=== PATIENT | male | born 1985 | race Caucasian/White ===

== ENCOUNTER 2023-02-11 09:40 | Emergency (ER) | payer OTHER, SELFPAY ==
[2023-02-11 09:46] VITALS: BP 110/81; PULSE 80; RESP 18; TEMP 36.3; O2SAT 98; BMI 30.7
--- NOTE | 2023-02-11 11:07 | ED.EXTPRO ---
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 No associated trauma. Denies numbness. No fevers or chills. No previous issues with this extremity in the past. Has not taken anything for pain. Related Data Previous Rx's Medication Instructions Recorded ketorolac 10 mg tablet 10 mg PO TID PRN pain 5 days #15 02/11/23 tabs prednisone 50 mg tablet 50 mg PO DAILY 5 days #5 tabs 02/11/23 Allergies Allergy/AdvReac Type Severity Reaction Status Date / Time No Known Allergies Allergy Verified 02/11/23 09:44 Review of Systems Review of Systems: Constitutional : No Weight loss, No Fever, No Chills, No Fatigue, No Malaise ENT/Mouth : No sore throat, No Rhinorrhea Eyes: No Eye Pain, No Swelling, No Redness Cardiovascular : No Chest Pain, No SOB, No Dyspnea on Exertion, No Orthopnea, No Edema, No Palpitations Respiratory : No Cough, No Sputum, No Wheezing Gastrointestinal : No Nausea, No Vomiting, No Diarrhea, No Constipation, No abdominal Pain, No Hematochezia, No Melena Genitourinary : No Dysuria, No Urinary Frequency, No Hematuria, Musculoskeletal : + joint pain, No Myalgias, No Joint Swelling Skin : No Skin Lesions, No rash Neuro : No Weakness, No Numbness, No Dizziness, No Headache Psych : No Anxiety/Panic, No Depression All other systems reviewed and are negative Yes all other systems are reviewed and are negative [facility] Past Medical History Attestation statement: The following information was validated with the patient. Source: old records reviewed and nursing notes reviewed Social History Social History Advance Directives: No Advance Directives Information Provided: No Physical Exam Vital Signs: Vital Signs: Last Vital Signs Temp 97.3 F 02/11/23 09:46 Pulse 80 02/11/23 09:46 Resp 18 02/11/23 09:46 BP 110/81 02/11/23 09:46 Pulse Ox 98 02/11/23 09:46 O2 Del Method Room Air 02/11/23 09:46 BMI result Body Mass Index 30.7 vss Appearance: Alert.? Oriented X3.? No acute distress.? Head: Normocephalic, atraumatic, no step-offs or deformities Eyes: Pupils equal, round and reactive to light.? Neck: Normal inspection.? Neck supple.? CVS: Normal heart rate and rhythm.? Pulses normal.? Respiratory: No respiratory distress.? Breath sounds normal.? Abdomen: Soft and nontender.? Skin: Skin warm and dry.? Normal skin color.? Normal skin turgor.? Extremities: No lower extremity edema.? No calf ttp. 5/5 strength to bilateral upper and lower extremities full range of motion to bilateral wrist 2+ radial pulses equal bilateral. No wrist drop. Capillary refill less than 2 seconds to bilateral upper extremities. Positive Tinel sign Neuro: Oriented X 3.? No motor deficit.? No sensory deficit. CN 2-12 intact Medical Decision Making Medical Decision Making [facility] Narrative: 1108 37-year-old male presents with left wrist pain for the past few months intermittent in nature and worsening. Physical exam significant Positive Tinel sign. Full range of motion to bilateral wrists Likely carpal tunnel versus cubital tunnel versus inflammatory arthritis. Unlikely fracture, dislocation, arterial, venous occlusion, threat to limber neurovascular compromise Plan will discharge patient home with Toradol, prednisone and orthopedic follow-up. No indication for imaging as this was atraumatic. Educated patient on diagnosis and treatment plan, answered all question, patient verbalizes understanding. At this time patient will be discharged home, advised to return with new or worsening symptoms. Educated on worrisome signs and symptoms and when to return. At this time I feel comfortable discharge home. Differential Diagnosis Differential Diagnoses: The differential diagnosis associated with the presentation includes Likely carpal tunnel versus cubital tunnel versus inflammatory arthritis. Unlikely fracture, dislocation, arterial, venous occlusion, threat to limber neurovascular compromise Admission/Observation Consideration of admission/observation: Escalation of care including admission/observation considered No indication Tests considered The following testing was considered but not selected: Considered imaging however would not change my treatment plan, no trauma no indication. No point tenderness. Prescription Management I considered prescription management with: Pain Medication and Other (Toradol, prednisone.) Social Determinants Patient?s care significantly limited by Social Determinants of Health including: Low income Discharge Plan Discharge Clinical Impression: Acute carpal tunnel syndrome Patient Disposition: Home, Self-Care Instructions: R.I.C.E. Treatment (ED) Additional Instructions: Take your medications as prescribed. If you were prescribed antibiotics today, it is important that you take your medication to their entirety, do not skip any doses, do not finish them early. Follow-up with your primary care provider this week. Follow-up with the orthopedic team. Return to the emergency department with new or worsening symptoms. Such as fevers, chills, chest pain, shortness of breath, nausea, vomiting, dizziness, headache, vision changes, lethargy, numbness, tingling, changes in skin color or swelling In case of emergency call 911 Toradol has been sent to your pharmacy, you tolerated this well in the department. Please take this as prescribed do not take this with ibuprofen, or other NSAIDs, do not mix this with alcohol. Side effects of this medication including increased risk for bleeding and possible kidney injury. Prescriptions: New ketorolac 10 mg tablet 10 mg PO TID PRN (Reason: pain) 5 Days Qty: 15 0RF prednisone 50 mg tablet 50 mg PO DAILY 5 Days Qty: 5 0RF [place] [facility] [place] [facility] [Provider Group] - 2 days Physician,None [Primary Care Provider] - 2 days Stand Alone Forms: Work/School Release
[2023-02-11] MEDS: Ketorolac Tromethamine 30 MG/ML VIAL IM (11:14)
== END 2023-02-11 11:27 | disposition home or self-care (01) ==
PROVIDERS: Emergency Provider Emergency Medicine Emergency Medical Services
DX: G56.02 Carpal tunnel syndrome, left upper limb (principal)
CPT/HCPCS: 29125; 96372; 99284; J1885

== ENCOUNTER 2023-02-20 12:28 | Emergency (ER) | payer OTHER, SELFPAY ==
[2023-02-20 12:53] VITALS: BP 119/82; PULSE 74; RESP 18; TEMP 36.5; O2SAT 96; BMI 23.4
--- NOTE | 2023-02-20 12:55 | ED_ITS ---
HPI - Extremity Injury (Upper) General Chief Complaint: Extremity Injury, Upper Stated Complaint: wrist pain Time Seen by Provider: 02/20/23 12:58 Source: patient Mode of arrival: ambulatory Limitations: no limitations History of Present Illness HPI narrative: patient is a 37-year-old male presents emergency department for evaluation of persistent left wrist pain. States he was seen here 1 week ago and was advised that he has carpal tunnel syndrome. He received prescription for ketorolac and prednisone, has been wearing a brace, but continues to have pain. He has a an appointment with Orthopedics Scheduled for later this month. Related Data Previous Rx's Medication Instructions Recorded ketorolac 10 mg tablet 10 mg PO TID PRN pain 5 days #15 02/11/23 tabs prednisone 50 mg tablet 50 mg PO DAILY 5 days #5 tabs 02/11/23 Allergies Allergy/AdvReac Type Severity Reaction Status Date / Time No Known Allergies Allergy Verified 02/20/23 12:53 Review of Systems Review of Systems: Yes all other systems are reviewed and are negative PMF[facility] Past Medical History Attestation statement: The following information was validated with the patient. Source: old records reviewed Social History Social History Advance Directives: No Advance Directives Information Provided: Yes Physical Exam Vital Signs: Vital Signs: Last Vital Signs Temp 97.7 F 02/20/23 12:53 Pulse 74 02/20/23 12:53 Resp 18 02/20/23 12:53 BP 119/82 02/20/23 12:53 Pulse Ox 96 02/20/23 12:53 O2 Del Method Room Air 02/20/23 12:53 BMI result Body Mass Index 23.4 Appearance: Alert.?Oriented to person, place and time. No acute distress.?Normal affect. Eyes: Pupils equal, round and reactive to light.? ENT: Pharynx normal.?? Neck: Normal inspection.? Neck supple.?? CVS: Heart sounds normal. Normal heart rate and rhythm.? Pulses normal.?? Respiratory: No respiratory distress.? Lung sounds clear to auscultation bilaterally?? Abdomen: Soft and non-tender. Normoactive bowel sounds. Skin: Skin warm and dry.? Normal skin color.? ? Extremities: No lower extremity edema.? No calf ttp? 2+ radial pulse bilaterally. No wrist drop. + Tinel Neuro: Moves all extremities spontaneously. Sensation intact bilaterally. No focal neuro deficits. Ambulates with normal steady gait. Medical Decision Making Medical Decision Making MDM Narrative: 37-year-old male presents with left wrist pain for the past few months intermittent in nature and worsening. physical examination is consistent with carpal tunnel syndrome. No erythema, warmth, fevers, to suggest septic arthri tis. No neurovascular compromise. Discussed plan of care for discharge home, outpatient follow-up with Orthopedics, advised acetaminophen/ ibuprofen, avoidance of exacerbating repetitive movements. Stable for discharge. Discussed worrisome signs and symptoms that would warrant re-evaluation. Differential Diagnosis Differential Diagnoses: The differential diagnosis associated with the presentation includes (Likely carpal tunnel versus cubital tunnel versus inflammatory arthritis. Unlikely fracture, dislocation, arterial, venous occlusion, ) Tests considered The following testing was considered but not selected: As noted above Prescription Management I considered prescription management with: Pain Medication Discharge Plan Discharge Clinical Impression: Acute carpal tunnel syndrome Patient Disposition: Home, Self-Care Additional Instructions: You can take ibuprofen 200 mg, 3 tablets (600mg) every 6-8 hours as needed for pain, in addition to Tylenol 500 mg, 2 tablets (1,000mg) every 4-6 hours as needed for pain, but not to exceed 3 doses daily (3,000mg).? refrain from activities that worsen your pain. Where the splint provided to assist with pain management, especially wear them at night. Follow-up with orthopedics as scheduled. Prescriptions: No Action ketorolac 10 mg tablet 10 mg PO TID PRN (Reason: pain) 5 Days Qty: 15 0RF prednisone 50 mg tablet 50 mg PO DAILY 5 Days Qty: 5 0RF Referrals: Physician,Unknown J [Physician] - Discharge Date/Time: 02/20/23 13:29
== END 2023-02-20 13:29 | disposition home or self-care (01) ==
PROVIDERS: Emergency Provider Emergency Medicine
DX: G56.02 Carpal tunnel syndrome, left upper limb (principal)
CPT/HCPCS: 99281; 99282

== ENCOUNTER 2023-03-09 13:24 | Outpatient (AMB) | payer OTHER, SELFPAY ==
--- NOTE | 2023-03-09 13:31 | A.OFFVIS_ITS ---
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 Patient reports pain, numbness and tingling at his ulnar aspect of wrist as well as his palm. States noticing his pain around 02/11/22 that has been recently getting worse. He believes this is work related due to repetitive movement and lifting. His pain comes with lifting or twisting his of wrist. [place] [facility] [place], placed in a wrist brace and referral to orthopedics. He found little relief with ketoralac and prednisone that was prescribed. No other tx. 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 He states he has developed worsening pain due to repetitive motions and lifting at work. He states he has worsening pain, numbness and tingling at the ulnar aspect of his left wrist as well as his palm. His pain comes with lifting, twisting, supination, pronation and flexion of his wrist. He was recently seen at ED where x-rays were performed, placed in a wrist brace which he wears all the time, and he was referred to our office. He finds mild relief with ketorolac and prednisone. He has not had any treatment in the past. 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 Review of Systems Const All systems reviewed & are unremarkable except as noted in HPI and below Physical Exam Vital Signs: BMI result Body Mass Index 23.4 Const General: cooperative, healthy appearing, comfortable, no acute distress, well developed and alert Orientation/consciousness: patient oriented x3 HEENT Head: Yes normal to inspection, Yes normocephalic and Yes atraumatic Eyes General: appearance normal, both eyes and all related structures Resp Effort & Inspection: normal respiratory effort and able to speak in complete sentences Cardio Rate: regular rate Peripheral pulses: Peripheral pulses 2+ throughout GI Palpation (GI): Soft to palpation Skin Lesions: no lesions Rashes: no rashes Neuro General: patient oriented x3 Extrem Other: Left wrist: Normal to inspection. Tenderness over the carpal canal. Numbness and tingling over the median nerve distribution of the right hand. Able to make a full fist and fully extend all fingers. Positive Tinel's over cubital tunnel. Assessment & Plan Assessment & Plan (1) Cubital tunnel syndrome on left: Code(s): G56.22 - Lesion of ulnar nerve, left upper limb Plan He is going to continue with wrist splint while working. He will return to work light duty and he was sent for an EMG/nerve conduction study of his LUE to further evaluate etiology of his numbness. He will see me back once the scan is complete. Orders: Orders NE nerve conduction velocity Today R20.0 - Anesthesia of skin, R20.2 - Paresthesia of skin NE electromyogram (EMG) Today R20.0 - Anesthesia of skin, R20.2 - Paresthesia of skin Patient Instructions: Scribed for Ced Jamison PA-C, by Raad Ford medical technologist prn, on 03/09/2023 at 1:45 PM EST. I, Ced Jamison PA-C, have personally reviewed and agree with the information entered by the scribe. Coding Level of Care Code New Pt Level 3 (46059) Diagnoses Cubital tunnel syndrome on left G56.22
[2023-03-09 13:32] VITALS: BMI 23.4
== END 2023-03-09 14:28 | disposition home or self-care (01) ==
PROVIDERS: Visit Provider Physician Assistant
DX: G56.22 Lesion of ulnar nerve, left upper limb (principal)
CPT/HCPCS: 99203

== ENCOUNTER → 2023-03-09 13:24 | Outpatient (BNVA) | payer OTHER, SELFPAY | PROVIDERS: Visit Provider Physician Assistant | DX: G56.22 Lesion of ulnar nerve, left upper limb (principal) | CPT/HCPCS: 99202 ==

== ENCOUNTER 2023-04-17 09:39 | Outpatient (REF) | payer OTHER, SELFPAY | END 2023-04-17 09:40 | disposition home or self-care (01) | LOC: HO.NEURO 09:39 | PROVIDERS: Visit Provider Physician Assistant | DX: R20.0 Anesthesia of skin (principal); R20.2 Paresthesia of skin | CPT/HCPCS: 95886; 95909 ==

== ENCOUNTER → 2023-04-17 09:46 | Outpatient (BNV) | payer OTHER, SELFPAY | PROVIDERS: Visit Provider Physical Medicine & Rehabilitation | DX: M25.532 Pain in left wrist (principal); M25.522 Pain in left elbow | CPT/HCPCS: 95886; 95909 ==

== ENCOUNTER 2023-05-11 10:48 | Outpatient (AMB) | payer OTHER, SELFPAY ==
[2023-05-11 10:52] VITALS: BMI 23.4
--- NOTE | 2023-05-11 10:52 | A.OFFVIS_ITS ---
Intake Vital Signs 05/11/23 10:52 Height 5 ft 10 in Weight 163 lb BMI 23.4 Intake Visit Reasons: OV- EMG review Left upper Extremity Intake Note: Len 37 yr ld male presents today for his EMG review done with Dr. Vega. States he continues to have numbness and pain. He continues to wear his velcro wrist brace. Allergies No Known Allergies Allergy (Verified 05/11/23 10:53) HPI OV- EMG review Left upper Extremity HPI Details 37-year-old male who returns to the [facility] for an EMG review of LUE. He continues to have intermittent numbness and pain in his wrist which is aggravated with picking objects. He has no other concerns today. 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 Review of Systems Const All systems reviewed & are unremarkable except as noted in HPI and below Physical Exam Vital Signs: BMI result Body Mass Index 23.4 Const General: cooperative, healthy appearing, comfortable, no acute distress, well developed and alert Orientation/consciousness: patient oriented x3 HEENT Head: Yes normal to inspection, Yes normocephalic and Yes atraumatic Eyes General: appearance normal, both eyes and all related structures Resp Effort & Inspection: normal respiratory effort and able to speak in complete sentences Cardio Rate: regular rate Peripheral pulses: Peripheral pulses 2+ throughout GI Palpation (GI): Soft to palpation Skin Lesions: no lesions Rashes: no rashes Neuro General: patient oriented x3 Extrem Other: Left wrist: Normal to inspection. He experiences decreased sensation along the ulnar aspect of the hand. Mild discomfort with tinels over the cubital canal. Results Reviewed Results Reviewed: IMPRESSION: 1. This is a normal study. 2. There is no electrodiagnostic evidence for median neuropathy, ulnar neuropathy, brachial plexopathy, or cervical radiculopathy. Assessment & Plan Assessment & Plan (1) Cubital tunnel syndrome on left: Code(s): G56.22 - Lesion of ulnar nerve, left upper limb Plan We discussed options which include OT, NSAIDs and bracing. He will proceed with OT and NSAIDs. If he continues to have symptoms, he will contact the office to make an appointment to see Dr. Pollock for further treatment options. Orders: Orders OT Evaluation and Treatment Today G56.22 - Lesion of ulnar nerve, left upper gold b Patient Instructions: Scribed for Ced Jamison PA-C, by Raad Ford medical dosimetrist, on 05/11/2023 at 11:00 AM KINA. Ced King PA-C, have personally reviewed and agree with the information entered by the scribe. Coding Level of Care Code Est Pt Level 3 (38995) Diagnoses Cubital tunnel syndrome on left G56.22
== END 2023-05-11 11:06 | disposition home or self-care (01) ==
PROVIDERS: Visit Provider Physician Assistant
DX: G56.22 Lesion of ulnar nerve, left upper limb (principal)
CPT/HCPCS: 99213

== ENCOUNTER → 2023-05-11 10:48 | Outpatient (BNVA) | payer OTHER, SELFPAY | PROVIDERS: Visit Provider Physician Assistant | DX: G56.22 Lesion of ulnar nerve, left upper limb (principal) | CPT/HCPCS: 99212 ==

== ENCOUNTER 2023-05-19 08:00 | Outpatient (RCR) | payer OTHER, SELFPAY ==
--- NOTE | 2023-05-12 15:19 | MHC.OT.EP ---
[address] [phone] Occupational Therapy Plan of Care Patient Name: Len Land Jr Date of Evaluation: 05/12/23 Diagnosis: Cubital tunnel syndrome Pain Location: 710 Left medial elbow and left ulnar hand and wrist. 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 Pt seen in the ED on Mar 13 and treated for CTS sx and referred to Orthopedics. EMG/NCS on 04/17/23 report a normal study. Pt has been wearing a prefab wrist splint most of the day and working light duty without improvement in pain. Today pt presents with mild hypothenar muscle edema and able to elicit medial elbow pain with UE hyper rotation only and wrist pain with supinated lifting > 5 lb. 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 Pt denies any hand paresthesia Pt will benefit from OT to decrease left ulnar wrist pain with lifting. Frequency and Duration: The patient will be seen 2x wk x 3 wks Short Term Goals: Demo Indep with HEP Wean from wrist orthosis Tolerate lifting up to 30 lb with bilateral hands Tolerate lifting up to 4 lb frequent lift with left hand Quick DASH < 10 pts Custodial Goals: Same as above Treatment Plan: Therapeutic Exercise Therapeutic Activity Home Exercise Program Patient Education Edema Control ADL Training Ultrasound Kinesiotaping Electronically Signed By: Lillian Villalobos OT CHT CLT Please Sign and return to therapist. Thank you once again for your referral.
--- NOTE | 2023-05-19 08:30 | MHC.OT.DC ---
[address] [phone] F: [phone] Occupational Therapy Discharge Note Patient Name: Len Land Jr Provider: Ced Jamison Diagnosis: Cubital tunnel syndrome Date of Surgery: Date of Evaluation: 05/12/23 Date of Discharge: 05/19/23 Treatments to Date: 2 Cancellations to Date: No Shows to Date: Discharge Status: Achieved Goals Improved Function Independent with HEP Recommend MD Follow-up Discharge Summary: Medial elbow pain and ulnar wrist pain resolved. Pt has weaned from his splint and is essentially pain free. Goals met I anticipate pt to return to regular duty without difficulty. Skilled OT not needed at this time. Pt to follow up with MD to be cleared for full duty Electronically Signed By: Lillian Villalobos OT CHT CLT Reviewed/agree with student documentation: Therapist: Please Sign and return to therapist, thank you for your referral.
== END 2023-05-19 08:30 | disposition home or self-care (01) ==
LOC: HO.OT 08:00
PROVIDERS: Visit Provider Physician Assistant
DX: G56.22 Lesion of ulnar nerve, left upper limb (principal)
CPT/HCPCS: 97110; 97166

== ENCOUNTER 2023-08-21 10:20 | Emergency (ER) | payer OTHER, SELFPAY ==
--- NOTE | 2023-08-21 10:22 | ECG_ITS ---
Test Reason : cp Blood Pressure : / mmHG Vent. Rate : 084 BPM Atrial Rate : 084 BPM P-R Int : 116 ms QRS Dur : 074 ms QT Int : 360 ms P-R-T Axes : 067 019 058 degrees QTc Int : 425 ms Normal sinus rhythm Normal ECG No previous ECGs available Referred By: Generic ED Physician Electronically Signed By:Mike Olivia
[2023-08-21 10:25] VITALS: BP 116/85; PULSE 83; RESP 16; TEMP 36.9; O2SAT 97; BMI 23.0
--- NOTE | 2023-08-21 10:44 | ED.CHESTPAIN ---
HPI - Chest Pain General Chief Complaint: Chest Pain Stated Complaint: CP Time Seen by Provider: 08/21/23 10:44 Source: patient Mode of arrival: ambulatory Limitations: no limitations History of Present Illness HPI narrative: Patient is a 38 year old assigned male at with a history of alcohol abuse presenting to the emergency department today with left sided upper chest pain that is worse when he drinks alcohol. Patient states that he is having left sided chest pain that is worse when he drinks alcohol and he is drinking at least every other day. Patient denies any dizziness, lightheadedness, abdominal pain, nausea, vomiting, fever, chills, blurry vision, double vision, loss of vision, difficulty breathing, shortness of breath, back pain, night sweats, pain with urination, increased urinary frequency, increased urinary urgency, blood in his urine or stool, syncope or a near syncopal episode, recent trauma or falls, bowel incontinence, bladder incontinence, bowel retention, bladder retention, or any other complaints at this time. MD complaint: chest pain Pain radiation: none Relieving factors: nothing Exacerbating factors: nothing Treatment prior to arrival: none Related Data Previous Rx's ?Medication ?Instructions ?Recorded ibuprofen 800 mg tablet 800 mg PO Q8H PRN pain 30 days #90 03/11/23 tabs Allergies Allergy/AdvReac Type Severity Reaction Status Date / Time No Known Allergies Allergy Verified 08/21/23 10:30 Review of Systems Constitutional: Constitutional: Reports no additional constitutional complaints, Denies chills, Denies fever(s) and Denies night sweats Eyes: Eyes: Reports no additional eye complaints, Denies blurry vision, Denies change in vision, Denies diplopia, Denies eye discharge, Denies loss of vision and Denies eye pain ENT: Denies dizziness Cardiovascular: Cardiovascular: Reports no additional cardiovascular complaints, Reports chest pain, Denies lightheadedness, Denies Loss of Consciousness and Denies dyspnea Respiratory: Respiratory: Reports no additional respiratory complaints and Denies dyspnea Gastrointestinal: Gastrointestinal: Reports no additional gastrointestinal complaints, Denies abdominal pain, Denies melena, Denies hematochezia, Denies change in bowel habits and Denies change in stool character Genitourinary: Genitourinary: Reports no additional male genitourinary complaints, Denies hematuria, Denies oliguria, Denies difficulty urinating, Denies dysuria, Denies urinary frequency, Denies urinary hesitancy, Denies urinary incontinence and Denies urinary urgency Musculoskeletal: Musculoskeletal: Reports no additional musculoskeletal complaints, Denies numbness and Denies tingling Neurologic: Denies dizziness, Denies loss of vision, Denies numbness and Denies tingling Psychiatric: Psychiatric: Reports no additional psychiatric complaints Endocrine: Endocrine: Reports no additional endocrine complaints Hematologic/Lymphatic: Hematologic/Lymphatic: Reports no additional hematologic/lymphatic complaints Allergic/Immunologic: Allergic/Immunologic: Reports no additional allergic/immunologic complaints [facility] Past Medical History Attestation statement: The following information was validated with the patient. 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 Physical Exam Vital Signs: Vital Signs: Last Vital Signs Temp 98.7 F 08/21/23 12:00 Pulse 61 08/21/23 12:00 Resp 18 08/21/23 12:00 BP 103/71 08/21/23 12:00 Pulse Ox 99 08/21/23 12:00 O2 Del Method Room Air 08/21/23 12:00 BMI result Body Mass Index 23.0 Const: General: cooperative, no acute distress, alert and awake Nutritional Appearance: well nourished Orientation/consciousness: patient oriented x3 Limitations: no limitations HEENT: Head: Yes normal to inspection and Yes atraumatic Ears: hearing grossly normal bilaterally and external ears normal General nose exam: Normal external nose present, no nasal discharge noted and no epistaxis Face and sinus: Yes normal facial exam, No abrasion and No laceration Mouth: Normal oral and palatal mucosa present, no drooling and no muffled voice Eyes: General: appearance normal, both eyes and all related structures Periorbital: periorbital findings normal Eyelids: Yes eyelids normal Conjunctivae: conjunctivae normal Pupils: Equal, round and reactive pupils present EOM: EOMs intact bilaterally Neck: Neck: Yes normal visual inspection, Yes full ROM and Yes no lymphadenopathy Chest: Chest palpation & inspection: normal inspection of the chest Resp: Effort & Inspection: normal respiratory effort and able to speak in complete sentences Auscultation: clear to auscultation bilaterally Cardio: Rate: regular rate Rhythm: regular rhythm GI: Inspection: Yes normal to inspection Neuro: General: patient oriented x3 and moves all extremities Cranial nerves: Yes Equal, round and reactive pupils present Cognition (Neuro): normal cognition Motor exam (neuro): 5/5 motor strength present throughout Sensory Exam: Normal double simultaneous stimulation for sensation Coordination: [id number] test normal Extrem: General: Yes normal to inspection, Yes full ROM and Yes capillary refill normal Psych: Appearance: grossly normal Mental Status: mental status grossly normal Affect: normal affect Attitude: cooperative Thought process: Normal thought process present Thought content: Normal thought content present Insight: Good insight present (Psych) Medications Administered Discontinued Medications Generic Name Dose Route Start Last Admin Trade Name Freq PRN Reason Stop Dose Admin Sodium Chloride 1,000 mls @ 999 mls/hr 08/21/23 10:45 08/21/23 11:58 Ns IV 08/21/23 11:45 Infused .Q1H1M PONCE Infusion Pantoprazole Sodium 40 mg 08/21/23 10:44 08/21/23 10:57 Pantoprazole Sodium 40 Mg/10 Ml Vial IVPUSH 08/21/23 10:45 40 mg ONCE ONE Administration Medical Decision Making Medical Decision Making [facility] Narrative: Patient is a 38 year old assigned male at with a history of alcohol abuse presenting to the emergency department today with left sided chest pain that is worse after drinking alcohol. Patient's physical exam was unremarkable. Patient's blood work was unremarkable. Patient's EKG was unremarkable. I explained my physical exam findings as well as all test results to the patient. I answered all questions asked by the patient. Patient received IV fluids and protonix which he stated helped his symptoms significantly. Patient was offered addiction medicine consult however, he declined. I stressed the importance of the patient taking his medication as prescribed. I stressed the importance of the patient following up with his primary care provider. I stressed the importance of the patient returning to the emergency department immediately if his symptoms were to worsen or if he were to develop any dizziness, shortness of breath, difficulty breathing, chest pain, blurry vision, loss of vision, nausea, vomiting, abdominal pain, fever, chills, back pain, or any other complaints. Patient verbalized agreement and understanding with this treatment plan and discharge. Differential Diagnosis Differential Diagnoses: The differential diagnosis associated with the presentation includes GERD Alcohol abuse Gastritis Admission/Observation Consideration of admission/observation: Escalation of care including admission/observation considered Patient would have been admitted to the hospital had his work up had any findings where hospital admission was appropriate and his clinical presentation warranted hospital admission. Lab Data [facility] Lab Attestation statement: I reviewed the patient's lab results. My interpretation of these results are in the [facility] Rationale portion of this note. 08/21/23 10:52 08/21/23 10:53 Labs: Lab Results 08/21/23 08/21/23 Range/Units 10:52 10:53 WBC 5.5 (4.8-10.8) X10*3/uL RBC 4.62 (4.60-5.80) X10*6/uL Hgb 15.0 (14.0-18.0) g/dl Hct 41.4 L (42.0-52.0) % MCV 89.6 (80.0-98.0) fL MCH 32.5 (27.0-33.0) pg MCHC 36.2 H (31.0-36.0) g/dl RDW 11.8 (11.0-16.0) % Plt Count 324 (160-400) X10*3/uL MPV 8.6 L (9.4-12.4) fL Immature Gran % (Auto) 0.0 (0.0-0.4) % Neut % (Auto) 63.3 (45-73) % Lymph % (Auto) 27.5 (20-40) % [place] % (Auto) 6.8 (2-11) % Eos % (Auto) 1.5 (0-4) % Baso % (Auto) 0.9 (0-2) % Lymph # (Auto) 1.5 (1.2-4.9) X10*3/uL [place] # (Auto) 0.4 (0.1-1.2) X10*3/uL Eos # (Auto) 0.1 (0.0-0.4) X10*3/uL Baso # (Auto) 0.1 (0.0-0.2) X10*3/uL Abs Immat Gran (auto) 0.00 (0.00-0.03) X10*3/uL Absolute Neuts (auto) 3.5 (2.0-8.3) x10*3/uL Absolute Nucleated RBC 0.000 (0.0-0.012) X10*3/uL Nucleated RBC % (auto) 0.0 (0.0-0.2) /100WBC Sodium 142 (135-145) mmol/L Potassium 3.9 (3.3-5.1) mmol/L Chloride 106 (96-108) mmol/L Carbon Dioxide 24 (22-29) mmol/L Anion Gap 16 (12-20) BUN 10 (9-16) mg/dL Creatinine 0.90 (0.5-1.4) mg/dL Estim Creat Clear Calc 111.9 Estimated GFR > 60 Random Glucose 95 (60-115) mg/dL Calcium 9.6 (8.4-10.2) mg/dL Total Bilirubin 0.8 (0.0-1.0) mg/dL AST 23 (5-37) U/L ALT 25 (0-40) U/L Alkaline Phosphatase 48 (39-117) U/L Troponin I High Sens < 2.7 (<3.5-35.0) ng/L Total Protein 7.7 (6.5-8.0) g/dL Albumin 4.6 (3.5-5.0) g/dL Lipase 41 (8-78) U/L Independent Interpretation I performed an independent interpretation of an: EKG Interpretation: Vent. Rate: 084 BPM Atrial Rate: 084 BPM P-R Int: 116 ms QRS Dur: 074 ms QT Int: 360 ms P-R-T Axes: 067 019 058 degrees QTc Int: 425 ms Normal sinus rhythm Normal ECG No previous ECGs available DD/ 1023 Discharge Plan Discharge Clinical Impression: GERD (gastroesophageal reflux disease) Patient Disposition: Home, Self-Care Instructions: Gastroesophageal Reflux Disease (DC) Additional Instructions: Follow up with your primary care provider. Return to the emergency department immediately if your symptoms worsen or if you develop any dizziness, shortness of breath, difficulty breathing, chest pain, blurry vision, loss of vision, nausea, vomiting, abdominal pain, fever, chills, back pain, or any other complaints. Prescriptions: No Action ibuprofen 800 mg tablet 800 mg PO Q8H PRN (Reason: pain) 30 Days Qty: 90 3RF Referrals: [facility] Family Medicine [Provider Group] (Call to establish and follow up with a primary care provider. If you already have a primary care provider, please follow up with them.) [facility] Primary Care[facility] [Provider Group] [facility] Primary CareNadja [Provider Group] Print Language: Kosovan
[2023-08-21] MEDS: 0.9 % Sodium Chloride 1,000 ML 999 ML IV (10:54)
[2023-08-21 10:55] LABS: MANUAL DIFF FLAG NO
[2023-08-21] MEDS: Pantoprazole Sodium 40 MG/10 ML VIAL IVPUSH (10:57)
[2023-08-21 11:04] LABS: Basophils Absolute Auto 0.1 X10*3/uL (0.0-0.2); Basophils Percent Auto 0.9 % (0-2); Eosinophils Absolute Auto 0.1 X10*3/uL (0.0-0.4); Eosinophils Percent Auto 1.5 % (0-4); Hematocrit 41.4 % (42.0-52.0); Lymphocytes Absolute Auto 1.5 X10*3/uL (1.2-4.9); Lymphocytes Percent Auto 27.5 % (20-40); Mean Corpuscular HGB Conc 36.2 g/dl (31.0-36.0); Mean Corpuscular Hemoglobin 32.5 pg (27.0-33.0); Mean Corpuscular Volume 89.6 fL (80.0-98.0); Mean Platelet Volume 8.6 fL (9.4-12.4); Monocytes Absolute Auto 0.4 X10*3/uL (0.1-1.2); Monocytes Percent Auto 6.8 % (2-11); Neutrophils Absolute Auto 3.5 x10*3/uL (2.0-8.3); Neutrophils Percent Auto 63.3 % (45-73); Platelet Count 324 X10*3/uL (160-400); Red Blood Count 4.62 X10*6/uL (4.60-5.80); Red Cell Distribution Width 11.8 % (11.0-16.0); White Blood Count 5.5 X10*3/uL (4.8-10.8)
[2023-08-21 11:23] LABS: Alanine Aminotransferase 25 U/L (0-40); Albumin Level 4.6 g/dL (3.5-5.0); Alkaline Phosphatase 48 U/L (39-117); Anion Gap 16 (12-20); Aspartate Amino Transferase 23 U/L (5-37); Bilirubin Total 0.8 mg/dL (0.0-1.0); Blood Urea Nitrogen 10 mg/dL (9-16); Calcium 9.6 mg/dL (8.4-10.2); Carbon Dioxide 24 mmol/L (22-29); Chloride 106 mmol/L (96-108); Creatinine Clr Calc Pharmacy 111.9; Estimated Glomerular Filt Rate > 60; Glucose Random 95 mg/dL (60-115); Lipase 41 U/L (8-78); Potassium 3.9 mmol/L (3.3-5.1); Sodium 142 mmol/L (135-145); Total Protein 7.7 g/dL (6.5-8.0)
[2023-08-21 11:33] LABS: Troponin-I High Sensitivity < 2.7 ng/L (<3.5-35.0)
[2023-08-21 12:00] VITALS: BP 103/71; PULSE 61; RESP 18; TEMP 37.1; O2SAT 99
[2023-08-21 13:17] VITALS: BP 103/71; PULSE 61; RESP 18; TEMP 37.1; O2SAT 99
== END 2023-08-21 13:24 | disposition home or self-care (01) ==
PROVIDERS: Physician Assistant Medical; Emergency Provider Student in an Organized Health Care Education/Training Program
DX: K21.9 Gastro-esophageal reflux disease without esophagitis (principal); R07.89 Other chest pain; R11.0 Nausea; Z79.899 Other long term (current) drug therapy
CPT/HCPCS: 36415; 80053; 83690; 84484; 85025; 93005; 96361; 96374; 99284; 99285; C9113

== ENCOUNTER → 2023-08-21 10:22 | Outpatient (BNV) | payer OTHER, SELFPAY | PROVIDERS: Emergency Provider Student in an Organized Health Care Education/Training Program; Visit Provider Internal Medicine Cardiovascular Disease | DX: R07.9 Chest pain, unspecified (principal) | CPT/HCPCS: 93010 ==

== ENCOUNTER 2023-09-16 13:13 | Emergency (ER) | payer OTHER, SELFPAY ==
--- NOTE | ~2023-09-16 | XR_ITS ---
EXAMINATION: XR CHEST CLINICAL INFORMATION: Chest pain. COMPARISON: None available. TECHNIQUE: 2 views of the chest were obtained. FINDINGS: No significant abnormality is noted involving the heart, lungs, mediastinum, bony thorax or soft tissues. XR/XR chest 2V IMPRESSION: Unremarkable examination.
--- NOTE | 2023-09-16 13:19 | ECG_ITS ---
Test Reason : CHEST PAIN Blood Pressure : / mmHG Vent. Rate : 073 BPM Atrial Rate : 073 BPM P-R Int : 104 ms QRS Dur : 078 ms QT Int : 374 ms P-R-T Axes : 059 031 072 degrees QTc Int : 412 ms Sinus rhythm with short AL Otherwise normal ECG When compared with ECG of 21-AUG-2023 10:23, No significant change was found Referred By: Jeanne Lynch Electronically Signed By:DIMPLE BRANDT MD
[2023-09-16 13:40] VITALS: BP 133/90; PULSE 71; RESP 16; TEMP 36.6; O2SAT 97; BMI 23.7
--- NOTE | 2023-09-16 13:40 | ED_ITS ---
HPI - General Adult General Chief complaint: Abdominal Pain Stated complaint: CP and stomach pain Time Seen by Provider: 09/16/23 15:30 Source: patient Mode of arrival: ambulatory Limitations: no limitations History of Present Illness ED Provider: John Lynch NP HPI narrative: Patient is a 38-year-old male presenting to the ED with complaint of chest and epigastric abdominal pain for the past month. Seen here on 08/20 and diagnosed with GERD but not started on any medications at that time. Has been taking Pepto and Tums without relief. Sometimes has constipation, sometimes diarrhea. Denies nausea or vomiting. Denies fevers. Denies any shortness of breath or palpitations. MD complaint: chest/epigastric pain Onset (ago): month(s) Location: abdomen Radiation: non-radiation Severity: severe Quality: burning Pain Consistency: colicky Relieving factors: none Exacerbating factors: none Associated symptoms: denies other symptoms Treatments prior to arrival: other Related Data Previous Rx's ?Medication ?Instructions ?Recorded ibuprofen 800 mg tablet 800 mg PO Q8H PRN pain 30 days #90 03/11/23 tabs famotidine 20 mg tablet 20 mg PO BID #30 tabs 09/16/23 Allergies Allergy/AdvReac Type Severity Reaction Status Date / Time No Known Allergies Allergy Verified 09/16/23 13:42 Review of Systems 2 Review of Systems: As per HPI. 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 Blood pressure normal. Heart rate normal. Respiratory rate normal. Temperature normal. Oxygen saturation normal. Const General: cooperative, healthy appearing and no acute distress Orientation/consciousness: oriented to person, oriented to place, oriented to time and patient oriented x3 Limitations: no limitations HENMT Head: Yes normocephalic and Yes atraumatic Ears: external ears normal General nose exam: Normal external nose present Face and sinus: Yes face symmetric Mouth: oropharynx normal and moist mucous membranes Throat: Yes uvula midline Eyes Pupils: Equal, round and reactive pupils present Neck Neck: Yes normal visual inspection and Yes supple Resp Effort & Inspection: normal respiratory effort and able to speak in complete sentences Auscultation: clear to auscultation bilaterally Cardio Rate: regular rate Rhythm: regular rhythm Heart sounds: S1 normal heart sound present and S2 normal heart sound present GI Palpation (GI): Soft to palpation and nontender Auscultation: normoactive bowel sounds General: Yes no CVA tenderness Back/Spine/Pelvis Back: no CVA tenderness Skin General skin exam: elasticity normal and turgor normal Neuro General: oriented to person, oriented to place, oriented to time, patient oriented x3, moves all extremities, no focal motor deficits and CN's II-XI intact bilaterally Cranial nerves: Yes Equal, round and reactive pupils present Cognition (Neuro): normal cognition Extrem General: Yes full ROM, Yes no pedal edema and Yes no calf tenderness Psych Mental Status: mental status grossly normal Affect: normal affect Thought process: Normal thought process present Medical Decision Making Medical Decision Making [facility] Narrative: Patient is a 38-year-old male presenting to the ED with complaint of chest and epigastric abdominal pain for the past month. On exam patient is awake, A+Ox3, VS WNL, afebrile, normal neurological exam without focal deficits, physical exam findings as above. Given reported symptoms and physical exam findings, initial differential includes GERD, PUD, gastritis. Unlikely ACS. Labs notable for no leukocytosis, no anemia, no electrolyte abnormalities, negative troponin. EKG shows sinus rhythm with shortened MN interval, no significant change from prior. X-ray chest notable for no evidence of cardiomegaly, pneumothorax, pneumonia. My interpretation is in agreement with the radiologist's interpretation. Discussed with patient that given ongoing nature of symptoms, likely due to GERD. Will send prescription for famotidine and refer patient to GI for further evaluation. Return precautions discussed. Patient verbalized understanding of and agreement with plan. Differential Diagnosis Differential Diagnoses: The differential diagnosis associated with the presentation includes As per MDM. Admission/Observation Consideration of admission/observation: Escalation of care including admission/observation considered Patient would have been admitted to the hospital had their work up had any findings where hospital admission was appropriate and their clinical presentation warranted hospital admission. Lab Data [facility] Lab Attestation statement: I reviewed the patient's lab results. As per [facility]. 09/16/23 13:33 09/16/23 13:33 Labs: Lab Results 09/16/23 Range/Units 13:33 WBC 5.6 (4.8-10.8) X10*3/uL RBC 4.95 (4.60-5.80) X10*6/uL Hgb 15.4 (14.0-18.0) g/dl Hct 44.3 (42.0-52.0) % MCV 89.5 (80.0-98.0) fL MCH 31.1 (27.0-33.0) pg MCHC 34.8 (31.0-36.0) g/dl RDW 11.8 (11.0-16.0) % Plt Count 330 (160-400) X10*3/uL MPV 8.5 L (9.4-12.4) fL Immature Gran % (Auto) 0.2 (0.0-0.4) % Neut % (Auto) 54.6 (45-73) % Lymph % (Auto) 33.9 (20-40) % [place] % (Auto) 7.5 (2-11) % Eos % (Auto) 2.9 (0-4) % Baso % (Auto) 0.9 (0-2) % Lymph # (Auto) 1.9 (1.2-4.9) X10*3/uL [place] # (Auto) 0.4 (0.1-1.2) X10*3/uL Eos # (Auto) 0.2 (0.0-0.4) X10*3/uL Baso # (Auto) 0.1 (0.0-0.2) X10*3/uL Abs Immat Gran (auto) 0.01 (0.00-0.03) X10*3/uL Absolute Neuts (auto) 3.0 (2.0-8.3) x10*3/uL Absolute Nucleated RBC 0.000 (0.0-0.012) X10*3/uL Nucleated RBC % (auto) 0.0 (0.0-0.2) /100WBC PT 12.4 (11.1-13.3) SEC INR 1.0 (0.9-1.1) Sodium 140 (135-145) mmol/L Potassium 4.2 (3.3-5.1) mmol/L Chloride 105 (96-108) mmol/L Carbon Dioxide 23 (22-29) mmol/L Anion Gap 16 (12-20) BUN 13 (9-16) mg/dL Creatinine 0.97 (0.5-1.4) mg/dL Estim Creat Clear Calc 104.5 Estimated GFR > 60 Random Glucose 90 (60-115) mg/dL Calcium 9.7 (8.4-10.2) mg/dL Total Bilirubin 0.8 (0.0-1.0) mg/dL AST 28 (5-37) U/L ALT 28 (0-40) U/L Alkaline Phosphatase 49 (39-117) U/L Troponin I High Sens < 2.7 (<3.5-35.0) ng/L Total Protein 7.8 (6.5-8.0) g/dL Albumin 4.7 (3.5-5.0) g/dL Independent Interpretation I performed an independent interpretation of an: EKG (Sinus rhythm with shortened MN interval, 73 beats per minute, normal QTC, unchanged from prior) and Plain X-Ray Interpretation: No evidence of cardiomegaly, pneumothorax, pneumonia Radiology Impression Discussion of test interpretation with radiology: I have reviewed the radiologist's reading. Radiologist Impression: XR/XR chest 2V IMPRESSION: Unremarkable examination. External Record Review External record reviewed: Inpatient record, Office record and Outpatient record Prescription Management I considered prescription management with: Other Discharge Plan Discharge Clinical Impression: GERD (gastroesophageal reflux disease) Patient Disposition: Home, Self-Care Instructions: Diet for Stomach Ulcers and Gastritis (ED), Gastroesophageal Reflux Disease (DC), Noncardiac Chest Pain (ED) Additional Instructions: You were evaluated in the emergency department today for epigastric and chest pain. Your symptoms are likely due to GERD. You are being prescribed a medication for this, please use this as prescribed. We are referring you to the board liner operator for further evaluation. Please call their office to schedule an appointment, they will not call you. You should follow-up with your primary care provider as well. Return to the emergency department if you develop worsening chest pain, shortness of breath difficulty breathing, persistent vomiting, fever or any other concerning symptoms. Prescriptions: New famotidine 20 mg tablet 20 mg PO BID Qty: 30 0RF No Action ibuprofen 800 mg tablet 800 mg PO Q8H PRN (Reason: pain) 30 Days Qty: 90 3RF Referrals: [facility] [place] Gastroenterology Services [Provider Group] Stand Alone Forms: Work/School Release Print Language: Tristanian
[2023-09-16 13:43] LABS: MANUAL DIFF FLAG NO
[2023-09-16 13:44] LABS: Basophils Absolute Auto 0.1 X10*3/uL (0.0-0.2); Basophils Percent Auto 0.9 % (0-2); Eosinophils Absolute Auto 0.2 X10*3/uL (0.0-0.4); Eosinophils Percent Auto 2.9 % (0-4); Hematocrit 44.3 % (42.0-52.0); Hemoglobin 15.4 g/dl (14.0-18.0); Imm Gran Abs Auto 0.01 X10*3/uL (0.00-0.03); Imm Gran Pct Auto 0.2 % (0.0-0.4); Lymphocytes Absolute Auto 1.9 X10*3/uL (1.2-4.9); Lymphocytes Percent Auto 33.9 % (20-40); Mean Corpuscular HGB Conc 34.8 g/dl (31.0-36.0); Mean Corpuscular Hemoglobin 31.1 pg (27.0-33.0); Mean Corpuscular Volume 89.5 fL (80.0-98.0); Mean Platelet Volume 8.5 fL (9.4-12.4); Monocytes Absolute Auto 0.4 X10*3/uL (0.1-1.2); Monocytes Percent Auto 7.5 % (2-11); Neutrophils Percent Auto 54.6 % (45-73); Platelet Count 330 X10*3/uL (160-400); Red Blood Count 4.95 X10*6/uL (4.60-5.80); Red Cell Distribution Width 11.8 % (11.0-16.0); White Blood Count 5.6 X10*3/uL (4.8-10.8)
[2023-09-16 13:55] LABS: Prothrombin Time 12.4 SEC (11.1-13.3)
[2023-09-16 14:01] LABS: Alanine Aminotransferase 28 U/L (0-40); Albumin Level 4.7 g/dL (3.5-5.0); Alkaline Phosphatase 49 U/L (39-117); Anion Gap 16 (12-20); Aspartate Amino Transferase 28 U/L (5-37); Bilirubin Total 0.8 mg/dL (0.0-1.0); Blood Urea Nitrogen 13 mg/dL (9-16); Calcium 9.7 mg/dL (8.4-10.2); Carbon Dioxide 23 mmol/L (22-29); Chloride 105 mmol/L (96-108); Creatinine Clr Calc Pharmacy 104.5; Estimated Glomerular Filt Rate > 60; Glucose Random 90 mg/dL (60-115); Potassium 4.2 mmol/L (3.3-5.1); Sodium 140 mmol/L (135-145); Total Protein 7.8 g/dL (6.5-8.0)
[2023-09-16 14:07] LABS: Troponin-I High Sensitivity < 2.7 ng/L (<3.5-35.0)
[2023-09-16 15:31] VITALS: BP 124/79; PULSE 58; RESP 16; TEMP 36.5; O2SAT 99
== END 2023-09-16 15:37 | disposition home or self-care (01) ==
PROVIDERS: Registered Nurse Emergency; Emergency Provider Emergency Medicine
DX: K21.9 Gastro-esophageal reflux disease without esophagitis (principal); R07.9 Chest pain, unspecified; R10.13 Epigastric pain; F17.200 Nicotine dependence, unspecified, uncomplicated
CPT/HCPCS: 36415; 71046; 80053; 84484; 85025; 85610; 93005; 99283

== ENCOUNTER → 2023-09-16 13:19 | Outpatient (BNV) | payer OTHER, SELFPAY | PROVIDERS: Emergency Provider Emergency Medicine; Visit Provider Internal Medicine Cardiovascular Disease | DX: R07.9 Chest pain, unspecified (principal) | CPT/HCPCS: 93010 ==